=== PATIENT | female | born 1975 | race Caucasian/White ===

== ENCOUNTER 2018-01-27 17:16 | Emergency (ER) | payer BC, SELFPAY ==
[2018-01-27 17:18] VITALS: BP 196/116; PULSE 86; RESP 16; TEMP 36.5; O2SAT 98; BMI 32.4
[2018-01-27 17:41] VITALS: BP 223/124
--- NOTE | 2018-01-27 17:45 | EKG12_ITS ---
Test Reason : DYSRHYTHMIA Blood Pressure : / mmHG Vent. Rate : 080 BPM Atrial Rate : 080 BPM P-R Int : 166 ms QRS Dur : 088 ms QT Int : 384 ms P-R-T Axes : 053 063 025 degrees QTc Int : 442 ms Normal sinus rhythm with sinus arrhythmia Normal ECG Confirmed by VIV LANDIN, NIRAV ([id number]), photography editor DISHA ORTIZ ([id number] on 01/29/2018 3:07:13 PM Referred By: ALE Confirmed By:NIRAV NAM MD
--- NOTE | 2018-01-27 17:48 | NURSING ---
NO OLD EKGS
--- NOTE | 2018-01-27 17:51 | ED.DCSUM_ITS ---
- ER Visit Summary Date of Service: 01/27/18 Chief Complaint: [] Hypertension History of Present Illness: The patient is a 42 F [] complaining of hypertension beginning today. She reports feeling slightly dizzy. She reports checking her blood pressure at home with the 220/120 result. She denies chest pain or shortness of breath. Denies abdominal pain. 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 She reports no history of hypertension. She does report a history of Graves' and osteoporosis. She does report compliance with her Synthroid. Reports noncompliance with her calcium. Past surgical history of close cystectomy and C -section. Denies smoking. Physical Examination: [] Afebrile, blood pressure 196/116. Temperature 97.7. Heart rate 86. Respirations 16. Pulse ox 98% on room air. 42-year-old female no acute distress. Conversational. Patient is in no respiratory distress. Abdomen is soft and nontender. There is no lower extremity edema. Remainder of exam is unremarkable. Test Results: [] EKG: Normal sinus rhythm, rate of 80 without ischemic changes. Normal intervals. Labs: CBC, BMP within normal limits. TSH slightly low at 0.30. Emergency Department Course and Treatment: [] Patient provided 0.5 mg intravenously of Ativan, 10 mg intravenously of hydralazine. On serial examination patient had improvement blood pressure to the 161/105 range. Patient felt improvement. Patient was amenable to discharge. I will start her on 25 mg hydrochlorothiazide for 10 days until she can follow-up with her primary care physician. She was instructed to begin this tomorrow after waking up. Treatment Plan: [] Follow-up with PCP. Start HCTZ. Disposition: [] Discharge, stable. Impression: [] Hypertensive urgency Dizziness This note was generated with [employer] dictation software. It may contain incorrect words, spelling, and punctuation that were not noted in review of the chart prior to signing ED Disposition - Plan for ED Patient: Chief Complaint: Hypertension
[2018-01-27] MEDS: LORazepam 2 MG/ML Syringe 0.5 MG IV (17:54)
[2018-01-27] MEDS: hydrALAZINE 20 MG/ML Vial 10 MG IV (17:54)
[2018-01-27 18:00] VITALS: BP 176/110
[2018-01-27 18:23] LABS: Absolute Neutrophil Count 4.2 X10^3/uL (2.0-7.7); Basophil# 0.01 X10^3/uL; Basophil% 0.1 % (0-1); Eosinophil# 0.18 X10^3/uL; Eosinophils% 2.4 % (0-5); Hematocrit 37.3 % (37-47); Hemoglobin 12.4 g/dl (12.0-15.0); Lymphocyte % 35.5 % (19-41); Mean Corp Hgb Conc 33.2 g/gl (32-36); Mean Corpuscular Volume 84.2 fL (81-99); Mean Platelet Vol. 9.9 fl (6.2-12.0); Monocyte# 0.51 X10^3/uL; Monocyte% 6.7 % (0-10); Neutrophil # 4.19 X10^3/uL (2.7-7.7); Neutrophil % 55.2 % (47-70); POSITIVE COUNT NO; POSITIVE DIFFERENTIAL NO; POSITIVE MORPHOLOGY NO; Platelet Count 333 K/mm3 (150-450); RBC Distribution Width CV 13.6 % (11.6-14.6); RBC Distribution Width SD 41.7 fl (35.1-43.9); Red Blood Count 4.43 M/mm3 (4.2-5.4); White Blood Count 7.6 K/mm3 (4.4-11.0)
[2018-01-27 18:43] LABS: Anion Gap 7 (5-15); BUN 12 mg/dL (7-18); BUN/Creat Ratio 14.4 RATIO (10-20); Chloride 104 mmol/L (98-107); Creatinine, Serum 0.83 mg/dL (0.55-1.02); EST Glomerular Filtration Rate 79 mL/min (>60); Est Glom Filt Rate - Afr Amer 96 mL/min (>60); Estimated Creatinine Clearance 77.83 ml/min; Glucose 104 mg/dL (74-106); Potassium 3.4 mmol/L (3.5-5.1); Sodium Level 139 mmol/L (136-145)
--- NOTE | 2018-01-27 19:00 | ED.DEP ---
ED Disposition - Plan for ED Patient: Disposition: Home or Assisted Living Chief Complaint: Hypertension Instructions: ED Hypertension New Begin Tx Prescriptions: Hydrochlorothiazide [Hctz] 25 mg PO DAILY #10 tab Referrals: Jesse Campa MD [Primary Care Provider] -
[2018-01-27 19:26] VITALS: BP 167/89; PULSE 88; RESP 19; O2SAT 99
== END 2018-01-27 19:33 | disposition home or self-care (01) ==
PROVIDERS: Emergency Provider Emergency Medicine; Family Provider Internal Medicine; PCP Internal Medicine
DX: I16.0 Hypertensive urgency (principal); R42 Dizziness and giddiness; F41.9 Anxiety disorder, unspecified; E05.00 Thyrotoxicosis with diffuse goiter without thyrotoxic crisis or storm; M81.0 Age-related osteoporosis without current pathological fracture; Z91.19 Patient's noncompliance with other medical treatment and regimen
CPT/HCPCS: 80048; 84443; 85025; 93005; 96374; 96375; 99284; J7030; A4216